=== PATIENT | female | born 1960 | race Caucasian/White ===

== ENCOUNTER → 2017-12-04 14:36 | Outpatient (CLI) | payer OTHER, SELFPAY ==
--- NOTE | 2017-12-04 | DI.MG.S_ITS ---
PROCEDURE: MM DIAGNOSTIC MAMMO UNILAT LT COMPARISON: [facility], ADDITIONAL 1 VIEW, 06/03/2017, 9:43. [facility], BILATERAL SCREENING MAMMOGRAM, 05/16/2017, 15:47. [facility], ADDITIONAL 1 VIEW, 11/03/2008, 14:00. [facility], BILATERAL SCREENING MAMMOGRAM, 10/28/2008, 8:23. INDICATIONS: 6 month follow up FINDINGS: IMPRESSION: Dictated by: Felipe Delatorre M.D. on 12/05/2017 at 12:06 Approved by: Felipe Delatorre M.D. on 12/05/2017 at 12:08
--- NOTE | 2017-12-04 16:30 | DI.US.S_ITS ---
ULTRASOUND OF LEFT BREAST: 12/04/2017 CLINICAL: Patient returns for a 6 month follow up of the left breast. Comparison is made to exams dated: 12/04/2017 mammogram, 06/03/2017 ultrasound, 06/03/2017 mammogram, and 05/16/2017 mammogram - [facility]. Targeted real-time and Doppler ultrasound of the left breast were performed. Irving scale images of the real-time examination were reviewed. There is redemonstration of an oval lobulated probable cyst or cluster of microcysts measuring 0.9 x 0.5 x 0.6 cm on today's exam (previously 1.2 cm x 1.0 cm x 0.7 cm on 06/03/2017) in the left breast at 2 o'clock 5 cm from the nipple. There is no vascularity on Doppler imaging. No other masses or abnormalities were identified. IMPRESSION: PROBABLY BENIGN - FOLLOW-UP RECOMMENDED 0.9 cm probable cyst or cluster of microcysts in the left breast at 2 o'clock 5 cm from the nipple is stable to slightly decreased in size when compared with prior exam. A follow-up mammogram and an ultrasound in 6 months is recommended to demonstrate continued stability, at which time the patient will aslo be due for bilateral mammography. Patient is advised to return sooner for re-evaluation should she feel anything grow or change within her breasts. This exam was interpreted at Station ID: [id number]. Electronically Signed By: Felipe Delatorre M.D. ecl/:12/05/2017 12:22:04 copy to: Nisha Arredondo M.D., [facility] [employer], ph: [phone], fax: [phone] letter sent: Followup Recommended Ultrasound BI-RADS: 3 Probably benign
== END ==
PROVIDERS: PCP Family Medicine; Visit Provider Obstetrics & Gynecology
DX: R92.8 Other abnormal and inconclusive findings on diagnostic imaging of breast (principal); N63.21 Unspecified lump in the left breast, upper outer quadrant
CPT/HCPCS: 76642; 77065; G0279

== ENCOUNTER → 2018-08-13 14:07 | Outpatient (CLI) | payer OTHER, SELFPAY ==
--- NOTE | 2018-08-13 14:09 | DI.MG.S_ITS ---
BILATERAL DIGITAL DIAGNOSTIC MAMMOGRAM 3D/2D SHORT-TERM FOLLOW-UP: 08/13/2018 CLINICAL: Patient returns for a 6 month follow up of the left breast. Due for bilateral imaging. Comparison is made to exams dated: 12/04/2017 mammogram, 05/16/2017 mammogram, and 11/03/2008 mammogram - [facility]. There are scattered fibroglandular elements in both breasts. The previously described subcentimeter round mass in the left breast at 1 o'clock middle depth is no longer seen mammographically. No other significant masses, calcifications, or other findings are seen in either breast. IMPRESSION: INCOMPLETE: NEEDS ADDITIONAL IMAGING EVALUATION An ultrasound is recommended to confirm the no longer seen subcentimeter round mass in the left breast middle depth. This exam was interpreted at Station ID: [id number]. NOTE: For mammograms, a report in lay terms will be sent to the patient. Approximately 15% of breast malignancies will not be visualized mammographically. In the management of a palpable breast mass, a negative mammogram must not discourage biopsy of a clinically suspicious lesion. SUMMARY: The recommended ultrasound is scheduled to immediately follow this examination. Electronically Signed By: Fam Zavala M.D. aty/:08/13/2018 15:31:03 copy to: Nisha Arredondo M.D., [facility] [employer] [facility], ph: [phone], fax: [phone] ACR BI-RADS Category 0: Incomplete 3340F
--- NOTE | 2018-08-13 14:09 | DI.US.S_ITS ---
ULTRASOUND OF LEFT BREAST: 08/13/2018 CLINICAL: 6 month follow-up of the left breast. Comparison is made to exams dated: 08/13/2018 mammogram, 12/04/2017 ultrasound, 12/04/2017 mammogram, 06/03/2017 mammogram, 05/16/2017 mammogram, and 11/03/2008 mammogram - [facility]. Color flow and real-time ultrasound of the left breast were performed. Irving scale images of the real-time examination were reviewed. There is 0.3 cm x 0.4 cm x 0.3 cm (previously 0.9cm x 0.5cm x 0.6 cm) lobulated micro cyst in the left breast at 2 o'clock middle depth 5 cm from the nipple. This lobulated micro cyst is hypoechoic. This abnormality continues to decrease in size and appears less prominent. It was no longer visualized mammographically. Color flow imaging demonstrates that there is no vascularity present. IMPRESSION: PROBABLY BENIGN Continued decrease in size of 0.3 cm x 0.4 cm x 0.3 cm lobulated micro cyst in the left breast which is probably benign. A follow-up bilateral mammogram and a left breast ultrasound in 12 months is recommended to document 2 years of stability versus resolution. This exam was interpreted at Station ID: [id number]. Electronically Signed By: Fam Zavala M.D. aty/:08/13/2018 15:36:58 copy to: Nisha Arredondo M.D., [employer], ph: [phone], fax: [phone] letter sent: Followup Recommended Ultrasound BI-RADS: 3 Probably benign
== END ==
PROVIDERS: PCP Family Medicine
DX: R92.8 Other abnormal and inconclusive findings on diagnostic imaging of breast (principal); N60.02 Solitary cyst of left breast
CPT/HCPCS: 76642; 77066; G0279

== ENCOUNTER → 2019-11-27 09:19 | Outpatient (CLI) | payer OTHER, SELFPAY ==
[2019-12-01 15:36] LABS: Fecal Immunochemical Test Negative (Negative)
== END ==
PROVIDERS: PCP Family Medicine; Visit Provider Family Medicine
DX: Z12.11 Encounter for screening for malignant neoplasm of colon (principal)
CPT/HCPCS: 82274

== ENCOUNTER → 2019-11-27 09:34 | Outpatient (CLI) | payer OTHER, SELFPAY ==
[2019-11-27 12:01] LABS: Cholesterol 202 mg/dL (140-199); Glucose 92 mg/dL (80-110); HDL Cholesterol 105 mg/dL (40-60); LDL Cholesterol Calculated 83 mg/dL (<100); Triglycerides 68 mg/dL (35-150)
--- NOTE | 2019-11-27 14:07 | DI.MG.S_ITS ---
Patient Name: CHIRAG HASSAN date: 1960 Sex: F Attending Physician: Arnulfo Indications: Date: 11/27/2019 14:04 At the request of: NISHA ARREDONDO Procedure: MM diagnostic mammo BI BILATERAL DIGITAL DIAGNOSTIC MAMMOGRAM 3D/2D SHORT-TERM FOLLOW-UP: 11/27/2019 CLINICAL: Patient returns for a 24 month follow up of the left breast, due for bilateral exam. Comparison is made to exams dated: 08/13/2018 mammogram, 12/04/2017 mammogram, 06/03/2017 mammogram, and 05/16/2017 mammogram - [facility]. There are scattered fibroglandular elements in both breasts. There is an oval low density asymmetry with an indistinct margin in the left breast at 2 o'clock middle depth. This is less prominent. No other significant masses, calcifications, or other findings are seen in either breast. IMPRESSION: INCOMPLETE: NEEDS ADDITIONAL IMAGING EVALUATION The oval low density asymmetry in the left breast is indeterminate. An ultrasound is recommended. This exam was interpreted at Station ID: [id number]. NOTE: For mammograms, a report in lay terms will be sent to the patient. Approximately 15% of breast malignancies will not be visualized mammographically. In the management of a palpable breast mass, a negative mammogram must not discourage biopsy of a clinically suspicious lesion. Electronically Signed By: Jarret Davila M.D. ddp/penrad:11/27/2019 14:50:40 copy to: Nisha Arredondo M.D., [facility], ph: [phone], fax: Continued Report - Page 2 of 2 Patient Name: CHIRAG HASSAN date: 1960 Sex: F Attending Physician: Arnulfo Indications: Date: 11/27/2019 14:04 At the request of: NISHA ARREDONDO Procedure: MM diagnostic mammo BI
--- NOTE | 2019-11-27 15:08 | DI.US.S_ITS ---
Patient Name: CHIRAG HASSAN date: 1960 Sex: F Attending Physician: Arnulfo Indications: Date: 11/27/2019 15:31 At the request of: NISHA ARREDONDO Procedure: US breast LT limited LIMITED ULTRASOUND OF LEFT BREAST: 11/27/2019 CLINICAL: 6 month follow-up of cysts. lt breast 200. Comparison is made to exams dated: 11/27/2019 mammogram, 08/13/2018 ultrasound, 08/13/2018 mammogram, 12/04/2017 ultrasound, 12/04/2017 mammogram, and 06/03/2017 ultrasound - [facility]. Color flow and real-time ultrasound of the left breast 2 o'clock region were performed on the areas of interest. There is a 0.4 cm x 0.3 cm x 0.4 cm oval cyst in the left breast at 2 o'clock middle depth. This oval cyst is hypoechoic with internal echoes and posterior acoustic enhancement. This abnormality is progressively decreased in size compared to prior studies. IMPRESSION: BENIGN There is no sonographic evidence of malignancy. The 0.4 cm x 0.3 cm x 0.4 cm oval cyst in the left breast is consistent with a complicated cyst and is benign given stability of greater than 2 years. A 1 year screening mammogram is recommended. This exam was interpreted at Station ID: [id number]. Electronically Signed By: Jarret Davila M.D. ddp/:11/27/2019 15:48:52 copy to: Nisha Arredondo M.D., [facility] [employer] [facility], ph: [phone], fax: letter sent: Normal Exam Ultrasound BI-RADS: 2 Benign Continued Report - Page 2 of 2 Patient Name: CHIRAG HASSAN date: 1960 Sex: F Attending Physician: Arnulfo Indications: Date: 11/27/2019 15:31 At the request of: NISHA ARREDONDO Procedure: US breast LT limited
== END ==
PROVIDERS: PCP Family Medicine; Referring Provider Family Medicine; Visit Provider Family Medicine
DX: R92.8 Other abnormal and inconclusive findings on diagnostic imaging of breast (principal); N60.02 Solitary cyst of left breast; Z13.220 Encounter for screening for lipoid disorders; Z13.1 Encounter for screening for diabetes mellitus; Z12.11 Encounter for screening for malignant neoplasm of colon
CPT/HCPCS: 36415; 76642; 77066; 80061; 82274; 82947; G0279

== ENCOUNTER → 2020-06-01 15:53 | Outpatient (CLI) | payer OTHER, SELFPAY ==
[2020-06-01] MEDS: COVID-19 VACC, Ad26(JANSSEN)/PF 0.5 ML IM (16:02)
== END ==
PROVIDERS: PCP Family Medicine; Visit Provider Internal Medicine
DX: Z23 Encounter for immunization (principal)
CPT/HCPCS: 0031A; 91303

== ENCOUNTER → 2021-02-25 08:55 | Outpatient (CLI) | payer OTHER, SELFPAY ==
--- NOTE | 2021-02-25 | DI.MG.S_ITS ---
BILATERAL DIGITAL SCREENING MAMMOGRAM 3D/2D WITH CAD: 02/25/2021 CLINICAL: Routine screening. Comparison is made to exams dated: 11/27/2019 mammogram, 08/13/2018 mammogram, and 05/16/2017 mammogram - [facility]. There are scattered fibroglandular elements in both breasts. Current study was also evaluated with a Computer Aided Detection (CAD) system. No significant masses, calcifications, or other findings are seen in either breast. There has been no significant interval change. IMPRESSION: NEGATIVE There is no mammographic evidence of malignancy. A 1 year screening mammogram is recommended. This exam was interpreted at Station ID: [id number]. NOTE: For mammograms, a report in lay terms will be sent to the patient. Approximately 15% of breast malignancies will not be visualized mammographically. In the management of a palpable breast mass, a negative mammogram must not discourage biopsy of a clinically suspicious lesion. Electronically Signed By: Sascha Parr M.D. /mathew:02/27/2021 09:35:07 copy to: Nisha Arredondo M.D., [facility] [employer] [facility], ph: [phone], fax: [phone] letter sent: Normal Exam ACR BI-RADS Category 1: Negative 3341F
== END ==
PROVIDERS: PCP Family Medicine; Referring Provider Family Medicine; Visit Provider Family Medicine
DX: Z12.31 Encounter for screening mammogram for malignant neoplasm of breast (principal)
CPT/HCPCS: 77063; 77067

== ENCOUNTER → 2022-04-11 16:22 | Outpatient (CLI) | payer OTHER, SELFPAY ==
--- NOTE | 2022-04-11 16:23 | DI.MG.S_ITS ---
BILATERAL DIGITAL SCREENING MAMMOGRAM 3D/2D WITH CAD: 04/11/2022 CLINICAL: Routine screening. Comparison is made to exams dated: 02/25/2021 mammogram, 11/27/2019 mammogram, 08/13/2018 mammogram, 08/13/2018 ultrasound, and 11/27/2019 ultrasound - [facility]. There are scattered areas of fibroglandular density in both breasts (category b / 25%-50% glandular tissue). Current study was also evaluated with a Computer Aided Detection (CAD) system. No significant masses, calcifications, or other findings are seen in either breast. There has been no significant interval change. IMPRESSION: NEGATIVE There is no mammographic evidence of malignancy. A 1 year screening mammogram is recommended. Based on the Tyrer Cuzick model (a risk assessment model) the patient's lifetime risk is 9.4% and her 10 year risk is 4.1%. According to the ACR, ACS, and NCCN guidelines, an annual breast MRI exam along with mammogram is recommended if the patient's lifetime risk is 20% or greater. This exam was interpreted at Station ID: [id number]. NOTE: For mammograms, a report in lay terms will be sent to the patient. Approximately 15% of breast malignancies will not be visualized mammographically. In the management of a palpable breast mass, a negative mammogram must not discourage biopsy of a clinically suspicious lesion. Electronically Signed By: Sascha Parr M.D., jr/mathew:04/12/2022 13:31:11 copy to: Nisha Arredondo M.D., [facility] [employer] [facility], ph: [phone], fax: [phone] letter sent: Normal Exam ACR BI-RADS Category 1: Negative [id number]
== END ==
PROVIDERS: PCP Family Medicine; Referring Provider Family Medicine; Visit Provider Family Medicine
DX: Z12.31 Encounter for screening mammogram for malignant neoplasm of breast (principal)
CPT/HCPCS: 77063; 77067

== ENCOUNTER → 2023-04-20 09:56 | Outpatient (CLI) | payer OTHER, SELFPAY ==
--- NOTE | 2023-04-20 | DI.MG.S_ITS ---
BILATERAL DIGITAL SCREENING MAMMOGRAM 3D/2D WITH CAD: 04/20/2023 CLINICAL: Routine screening. Comparison is made to exams dated: 04/11/2022 mammogram, 02/25/2021 mammogram, and 11/27/2019 mammogram - [facility]. There are scattered areas of fibroglandular density in both breasts (category b / 25%-50% glandular tissue). Current study was also evaluated with a Computer Aided Detection (CAD) system. No significant masses, calcifications, or other findings are seen in either breast. There has been no significant interval change. IMPRESSION: NEGATIVE There is no mammographic evidence of malignancy. A 1 year screening mammogram is recommended. Based on the Tyrer Cuzick model (a risk assessment model) the patient's lifetime risk is 8.8% and her 10 year risk is 4.1%. According to the ACR, ACS, and NCCN guidelines, an annual breast MRI exam along with mammogram is recommended if the patient's lifetime risk is 20% or greater. This exam was interpreted at Station ID: [id number]. NOTE: For mammograms, a report in lay terms will be sent to the patient. Approximately 15% of breast malignancies will not be visualized mammographically. In the management of a palpable breast mass, a negative mammogram must not discourage biopsy of a clinically suspicious lesion. Electronically Signed By: Lexus albrecht/mathew:04/22/2023 13:08:01 copy to: Nisha Arredondo M.D., [employer], ph: [phone], fax: [phone] letter sent: Normal Exam ACR BI-RADS Category 1: Negative 3341F
== END ==
PROVIDERS: PCP Family Medicine; Referring Provider Family Medicine; Visit Provider Family Medicine
DX: Z12.31 Encounter for screening mammogram for malignant neoplasm of breast (principal); R92.323 Mammographic fibroglandular density, bilateral breasts
CPT/HCPCS: 77063; 77067

== ENCOUNTER → 2023-06-24 08:21 | Outpatient (CLI) | payer OTHER, SELFPAY ==
[2023-06-24 09:04] LABS: Cholesterol 219 mg/dL (140-199); Glucose 92 mg/dL (80-110); Triglycerides 56 mg/dL (35-150)
[2023-06-24 11:36] LABS: HDL Cholesterol 114 mg/dL (40-60); LDL Cholesterol Calculated 94 mg/dL (<100)
== END ==
PROVIDERS: PCP Family Medicine; Referring Provider Family Medicine; Visit Provider Family Medicine
DX: Z13.9 Encounter for screening, unspecified (principal)
CPT/HCPCS: 36415; 80061; 82947

== ENCOUNTER → 2024-06-08 16:59 | Outpatient (CLI) | payer OTHER, SELFPAY ==
--- NOTE | 2024-06-08 17:00 | DI.MG.S_ITS ---
MM screening mammo BI: 06/08/2024. BI-RADS: 0 CLINICAL: 64-year old female for bilateral screening mammogram. Tyrer-Cuzick lifetime risk of 4.7%. No personal or first-degree family history of breast cancer. The patient is status-post reduction mammoplasty. PRIOR EXAMS 04/20/2023, 04/11/2022, 02/25/2021, 11/27/2019, 08/13/2018, 12/04/2017, 06/03/2017, 05/16/2017. MAMMOGRAPHY TECHNIQUE: 2D and 3D (tomosynthesis) digital mammographic views obtained, with additional images as needed for full coverage. Current study was also evaluated with a Computer Aided Detection (CAD) system. DENSITY B. There are scattered areas of fibroglandular density. MAMMOGRAPHY FINDINGS Right: Benign-appearing post-surgical changes noted on the right. There are no suspicious masses, calcifications, or other findings in the breast. Left: CC only, Inner, Posterior depth: Calcifications needing additional imaging evaluation. This may represent dystrophic calcifications, given patient's recent history of breast reduction surgery. IMPRESSION: Right * No evidence of malignancy with benign findings. Left (Calcification): CC only, Inner, Posterior depth * Incomplete - calcification needing additional imaging evaluation. RECOMMENDATIONS Left: CC only, Inner, Posterior depth * Further evaluation with diagnostic mammography. OVERALL ASSESSMENT CATEGORY BI-RADS-0: Incomplete - Need Additional Imaging Evaluation. ELECTRONICALLY SIGNED: Carmelita Padilla M.D. on 06/09/2024 at 12:22:20 PM PT Interpreting Station ID: [id number]
== END ==
PROVIDERS: PCP Family Medicine; Referring Provider Family Medicine; Visit Provider Family Medicine
DX: Z12.31 Encounter for screening mammogram for malignant neoplasm of breast (principal)
CPT/HCPCS: 77063; 77067

== ENCOUNTER → 2024-07-09 13:30 | Outpatient (CLI) | payer OTHER, SELFPAY ==
--- NOTE | 2024-07-09 13:31 | DI.MG.S_ITS ---
MM diagnostic mammo unilat LT: 07/09/2024. BI-RADS: 2 CLINICAL: 64-year old female for left diagnostic mammogram that is a recall from screening on 06/08/2024. Tyrer-Cuzick lifetime risk of 4.7%. No personal or first-degree family history of breast cancer. The patient is status-post reduction mammoplasty. PRIOR EXAMS 06/08/2024, 04/20/2023, 04/11/2022, 02/25/2021, 11/27/2019, 08/13/2018, 12/04/2017, 06/03/2017, 05/16/2017. MAMMOGRAPHY TECHNIQUE: 2D and 3D (tomosynthesis) digital mammographic views obtained, with additional images as needed for full coverage. Current study was also evaluated with a Computer Aided Detection (CAD) system. DENSITY Left: B. There are scattered areas of fibroglandular density. MAMMOGRAPHY FINDINGS Left: Lower Inner Quadrant, Posterior depth, measuring 0.7 cm. Previous report: CC only, Inner: There are benign dystrophic calcifications. This is likely related to the patient's recent reduction mammoplasty. IMPRESSION: Left * No evidence of malignancy with benign findings. RECOMMENDATIONS Bilateral * Annual screening mammography. COMMENTS: Findings and recommendations were conveyed to the patient during today's evaluation. OVERALL ASSESSMENT CATEGORY BI-RADS-2: Benign. The [employer] recommends annual screening mammography beginning at age 40 for women with average risk of breast cancer. ELECTRONICALLY SIGNED: Carmelita Padilla M.D. on 07/09/2024 at 02:39:29 PM PT Interpreting Station ID: [id number]
== END ==
LOC: MAMMO 13:31
PROVIDERS: PCP Family Medicine; Referring Provider Family Medicine; Visit Provider Family Medicine
DX: R92.8 Other abnormal and inconclusive findings on diagnostic imaging of breast (principal); R92.1 Mammographic calcification found on diagnostic imaging of breast
CPT/HCPCS: 77065; G0279

== ENCOUNTER → 2024-10-27 08:45 | Outpatient (CLI) | payer OTHER, SELFPAY | PROVIDERS: PCP Family Medicine; Referring Provider Family Medicine; Visit Provider Family Medicine | DX: Z12.11 Encounter for screening for malignant neoplasm of colon (principal) | CPT/HCPCS: 82274 ==